=== PATIENT | male | born 1935 | race Caucasian/White ===

== ENCOUNTER → 2018-09-29 | Outpatient (CLI) | payer MEDICARE | END | disposition home or self-care (01) | LOC: RAH 10:18 | PROVIDERS: ATTEND Internal Medicine | DX: J84.10 Pulmonary fibrosis, unspecified (principal) | CPT/HCPCS: 71046 ==

== ENCOUNTER → 2021-08-31 | Outpatient (CLI) | payer MEDICARE | END | disposition home or self-care (01) | LOC: RAH 14:15 | PROVIDERS: ATTEND Urology | DX: R33.9 Retention of urine, unspecified (principal); I25.10 Atherosclerotic heart disease of native coronary artery without angina pectoris; J43.9 Emphysema, unspecified | CPT/HCPCS: 74176 ==

== ENCOUNTER → 2022-01-08 | Outpatient (CLI) | payer MEDICARE ==
[~2022-01-08] MED LIST: AMIL5TAB8 PO; AMOX500C2 PO; BISA-189 PO; BUDE0.5A3 IH; CARB-39 PO; CHOL500062 PO; DRON400T7 PO; FERR500P12 MC; FINA5TAB41 PO; FLUD0.1T2 PO; IPRNEB IH; LEVO-70 PO; LEVO75TA4 PO; MIDO5TAB4 PO; PANT40TA PO; PIND10TA2 PO; POTA-202 PO; TAMS-1 PO
== END | disposition home or self-care (01) ==
LOC: RAH 10:31
PROVIDERS: ATTEND Internal Medicine
DX: Z01.818 Encounter for other preprocedural examination (principal); I70.0 Atherosclerosis of aorta; M47.815 Spondylosis without myelopathy or radiculopathy, thoracolumbar region
CPT/HCPCS: 71046

== ENCOUNTER 2022-12-16 18:53 | Emergency (ER) | payer MEDICARE ==
[2022-12-16] MEDS ORDERED: NOREPINEPHRINE BITARTRATE 1 MG/1 ML ML IV ONE (18:54)
[2022-12-16] MEDS ORDERED: LIDOCAINE 2G/250ML 250 ML IV ONE (18:54)
[2022-12-16] MEDS ORDERED: CACL 1GM SYG IVP ONE (18:54)
[2022-12-16] MEDS ORDERED: EPINEPHRINE 1MG/10ML(1:10,000) 0.1 MG/ML SYG IVP ONE (18:54)
[2022-12-16] MEDS ORDERED: SODIUM BICARB 8.4% 50ML SYRINGE IVP ONE (18:54)
[2022-12-16] MEDS ORDERED: ATROPINE 1MG SYG IVP ONE (18:54)
[2022-12-16] MEDS ORDERED: EPINEPHRINE 1MG/10ML(1:10,000) 0.1 MG/ML SYG ONE (19:06)
[2022-12-16] MEDS ORDERED: EPINEPHRINE PF 1MG (1:1,000) 1 MG/ML AMP ONE (19:07)
[2022-12-16 19:08] LABS: ABG BASE EXCESS -15.5 mmol/L (-2.0-3.0); ABG HCO3 14.2 mmol/L (21.0-28.0); ABG OXYGEN SATURATION 79.9 % (95.0-99.0); ABG PCO2 52 mmHg (35-48); ABG PH 7.052 (7.35-7.450); CARBON MONOXIDE 0.6; HHb 19.9; PO2, ARTERIAL BG 68.4 mmHg (83.0-108.0)
== END 2022-12-16 19:08 ==
LOC: EDH 18:53
DX: I46.9 Cardiac arrest, cause unspecified (principal); Z79.890 Hormone replacement therapy; Z79.899 Other long term (current) drug therapy
CPT/HCPCS: 99285; 92950; 31500; 82947; 82435; 84132; 84295; 82803; 85018; 83605; 36600; J3490 ×3; J0171 ×3; J0461; J2001